=== PATIENT | female | born 1955 | race Caucasian/White ===

== ENCOUNTER 2017-05-13 09:41 | Outpatient (CLI) | payer OTHER | END 2017-05-13 09:42 | disposition home or self-care (01) | LOC: BICMAMMO 09:41 | PROVIDERS: ATTEND Family Medicine | DX: Z12.31 Encounter for screening mammogram for malignant neoplasm of breast (principal); Z80.3 Family history of malignant neoplasm of breast | CPT/HCPCS: 77063; 77067 ==

== ENCOUNTER 2017-12-24 08:30 | Outpatient (CLI) | payer OTHER ==
--- NOTE | 2017-12-24 11:14 | NM ---
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 TECHNIQUE: Examination was done as a stress only study, using 33 millicuries of 99m technetium sestamibi. FINDINGS: This shows a normal distribution of the radiopharmaceutical without signs of ischemia. WALL MOTION: There is symmetric contractility to the ventricle. CALCULATED LEFT VENTRICULAR EJECTION FRACTION: The calculated left ventricular ejection fraction is 77%. IMPRESSION: Unremarkable stress myocardial study. POS: [facility]
[2017-12-24] MEDS ORDERED: Regadenoson 0.4 MG/5 ML SYRINGE ONE (15:08)
--- NOTE | 2017-12-26 11:13 | STRESS ---
Acquisition Time: 2017-12-24 09:22:53 Total Exercise Time: 00:01:00 Test Indications: CAD Medications: Protocol: LEXISCAN Max HR: 089 BPM 56% of Pred: 157 BPM Max BP: 130/088 mmHG Max Work Load: 1.0 METS RESTING ECG: NORMAL SINUS RHYTHM SYMPTOMS: CHEST PAIN, ARM PARESTHESIA NORMAL BP RESPONSE ECTOPY: NONE ECG STRESS: NO SIGNIFICANT CHANGES INTERPRETATION: AWAIT NUCLEAR IMAGES FOR DEFINITIVE DIAGNOSIS Confirmed by JAE WEBB ([id number]), technical editor ARACELI FERREIRA ([id number]) on 12/26/2017 11:13:06 AM Referred By: MD Tyler MCKEON Confirmed By:JAE WEBB
== END 2017-12-24 08:31 | disposition home or self-care (01) ==
LOC: NM 08:30
PROVIDERS: ATTEND Internal Medicine Cardiovascular Disease
DX: I25.10 Atherosclerotic heart disease of native coronary artery without angina pectoris (principal)
CPT/HCPCS: 78452; 93017; A9500; J2785

== ENCOUNTER 2018-06-02 12:32 | Day surgery (SDC) | payer OTHER ==
[2018-05-30 12:08] VITALS: BMI 48.5
[~2018-06-02 12:32] MED LIST: Dexamethasone 20 MG/5 ML VIAL ONE; Lidocaine 1% PF 5 ML VIAL ONE; PHENYLEPHRINE-NS 100 MCG/ML 10 ML SYRINGE ONE; PROPOFOL 200 MG/20 ML VIAL ONE; Succinylcholine Chloride 20 MG/ML 10 ml SYRINGE FS ONE; ePHEDrine 50 MG/ML VIAL ONE
[2018-06-02] MEDS ORDERED: Midazolam HCl 2 mg/2 ml Vial ONE (13:20)
[2018-06-02] MEDS ORDERED: Lidocaine 2% Jelly 5 ML TUBE ONE (13:20)
[2018-06-02] MEDS ORDERED: Fentanyl 100 MCG/2 ML VIAL ONE (13:20)
[2018-06-02 13:42] LABS: Anion Gap 14 mmol/L (10-20); BUN (Urea Nitrogen) 17 mg/dL (9.8-20.1); Calc. Creatinine Clearance 147 mL/min (70-130); Calcium 9.5 mg/dL (7.8-10.44); Carbon Dioxide 25 mmol/L (23-31); Chloride 106 mmol/L (98-107); Estimated GFR-MDRD 66; Glucose 95 mg/dL (80-115); Potassium 4.9 mmol/L (3.5-5.1); Sodium 140 mmol/L (136-145)
[2018-06-02 13:45] LABS: #Basophils 0.1 thou/uL (0.0-0.2); #Eosinphils 0.1 thou/uL (0.0-0.7); #Lymphocytes 1.9 thou/uL (1.20-3.40); #Monocytes 0.4 thou/uL (0.11-0.59); #Neutrophils 2.3 thou/uL (1.40-6.50); %Basophils 1.6 % (0.0-1.0); %Eosinophils 1.9 % (0.0-10.0); %Lymphocytes 39.6 % (21.0-51.0); %Monocytes 8.3 % (0.0-10.0); %Neutrophils 48.5 % (42.0-75.0); Hemoglobin 13.5 g/dL (12.0-16.0); Mean Corpuscular HGB CONC 32.8 g/dL (32.0-36.0); Mean Corpuscular Hemoglobin 29.2 pg (27.0-31.0); Mean Corpuscular Volume 89.2 fL (78.0-98.0); Mean Platelet Volume 8.4 fL (7.4-10.4); Platelet Count 206 thou/uL (130-400); RBC Distribution Width 12.7 % (11.5-14.5); Red Blood Cell (RBC) Count 4.64 mill/uL (4.20-5.40); White Blood Cell (WBC) Count 4.7 thou/uL (4.8-10.8)
[2018-06-02] MEDS ORDERED: Betamet Acet/Betamet Na Ph 30 MG/5 ML VIAL ONE (13:51)
[2018-06-02] MEDS ORDERED: Heparin 10,000 UNITS/1 ML VIAL ONE (13:51)
[2018-06-02] MEDS ORDERED: Bupivacaine PF 0.5% 30 ML VIAL ONE (13:51)
[2018-06-02] MEDS ORDERED: Lidocaine 2% PF 5 ML VIAL ONE (13:52)
[2018-06-02] MEDS ORDERED: Bacitracin Zinc Ointment 30 gm TUBE ONE (13:52)
[2018-06-02] MEDS ORDERED: Hetastarch 6% 500 ML 0 ML ONE (13:52)
[2018-06-02 14:22] LABS: Bilirubin Negative (Negative); Blood, Urine Trace (Negative); Glucose, Urine (Dipstick) Negative (Negative); Leukocyte Negative (Negative); Nitrite Negative (Negative); Protein, Urine (Dipstick) Negative (Neg-Trace); Specific Gravity, Urine 1.025 (1.005-1.030); Urobilinogen 0.2 mg/dL (0.2-1.0)
[2018-06-02 14:23] LABS: Clarity CLEAR (Clear)
[2018-06-02 14:27] LABS: Bacteria/HPF 1+ HPF (None Seen); Hyaline Casts/LPF NONE SEEN LPF (0-3 Hyaline); RBC/HPF 0-3 HPF (0-3); Squamous Epithelial 0-3 HPF (0-3); WBC/HPF 0-3 HPF (0-3)
--- NOTE | 2018-06-02 14:41 | RAD ---
TWO VIEWS CHEST: HISTORY: Preoperative chest radiograph. FINDINGS: PA and lateral views of the chest were obtained. Sternotomy wires were seen. The lungs are well aer ated. No evidence of active intrathoracic disease seen. No evidence of effusions, pneumonia, or pne umothorax seen. There is some minimal blunting of the left costophrenic angle likely due to some lef t pleural scar. No evidence of pulmonary vascular congestion seen. IMPRESSION: Postoperative changes with no evidence of acute intrathoracic abnormality seen. POS: [facility]
[2018-06-02] MEDS ORDERED: Ketorolac Tromethamine 30 MG/ML VIAL ONE (17:11)
--- NOTE | 2018-06-03 08:00 | OP ---
DATE OF PROCEDURE: 06/02/2018 PREOPERATIVE DIAGNOSIS: Thumb neuroma/neurilemmoma with nerve compression. POSTOPERATIVE DIAGNOSES: 1. Ganglion 2.5 cm diameter emanating from the mid lateral position of the thumb interphalangeal joint radial aspect. 2. Ganglion compressing the nerve over about half of its course, half of it size onto the radial digital nerve of the thumb. PROCEDURES PERFORMED: 1. Under magnification, neuroplasty, thumb radial digital nerve. 2. Arthrotomy, interphalangeal joint, thumb. 3. Ganglion, 2.5 cm resection from, thumb. TOURNIQUET TIME: 23 minutes. ESTIMATED BLOOD LOSS: Approximately 10 mL. GENERAL: LMA technique, augmented by approximately 50 mL stump metacarpophalangeal joint level block. DESCRIPTION OF PROCEDURE: After successful anesthesia listed above, limb prepped and draped. We outlined the incision that was midlateral except for was curved volar to have a better chance of evaluating the nerve. We began 10 mm proximal to the ganglion, identified the digital nerve and artery and then performed a neuroplasty and then over a proximally 1 cm portion of the volar aspect of this mass, which clearly proved to be ganglion, the digital nerve was being compressed and pushed midline and ulnarly. We then complete neuroplasty, protected the vascular supply, and then began to separate the ganglion. The ganglion had a stalk emanating from the mid lateral aspect of the interphalangeal joint, so we lifted the ganglion from all the surrounding soft tissue including the tendon sheath of the extensor pollicis longus, found the stalk and removed it. We then left an approximately 3 mm hole in the joint after the arthrotomy. Tourniquet was released, hemostasis obtained. We closed the wound with interrupted 5-0 nylon distal to the interphalangeal joint and proximal to the interphalangeal joint using 4-0 nylon, both in interrupted simple pattern. Bulky dressing was applied along with a thumb spica splint and the patient left the operating room without evidence of anesthetic operative complication. Job ID: [id number]
--- NOTE | 2018-06-03 09:35 | EKG ---
Test Reason : PREOP Blood Pressure : / mmHG Vent. Rate : 073 BPM Atrial Rate : 073 BPM P-R Int : 152 ms QRS Dur : 074 ms QT Int : 414 ms P-R-T Axes : 033 037 049 degrees QTc Int : 456 ms Normal sinus rhythm RSR' or QR pattern in V1 suggests right ventricular conduction delay Cannot rule out Inferior infarct , age undetermined Abnormal ECG When compared with ECG of 28-FEB-2016 12:32, Nonspecific T wave abnormality has replaced inverted T waves in Anterior leads Nonspecific T wave abnormality, worse in Lateral leads QT has shortened Confirmed by DR. Gayatri GA ([id number]) on 06/03/2018 9:34:31 AM Referred By: SUMEET Confirmed By:DR. Gayatri GA
== END 2018-06-02 19:02 | disposition home or self-care (01) ==
LOC: SDC 12:32
PROVIDERS: ATTEND Orthopaedic Surgery Hand Surgery
PROC: 0LB70ZZ Excision of Right Hand Tendon, Open Approach (ICD-10-PCS; principal; 2018-06-02)
DX: D49.2 Neoplasm of unspecified behavior of bone, soft tissue, and skin (principal); I25.10 Atherosclerotic heart disease of native coronary artery without angina pectoris; Z87.891 Personal history of nicotine dependence; Z79.82 Long term (current) use of aspirin; Z79.899 Other long term (current) drug therapy; Z95.1 Presence of aortocoronary bypass graft
CPT/HCPCS: 71046; 80048; 81001; 85025; 88305; 93005; 93010; J0702; J1100; J1644; J1885; J2001; J2250; J2704; J3010; J3490; S0020

== ENCOUNTER 2018-11-04 12:14 | Outpatient (CLI) | payer OTHER ==
--- NOTE | 2018-11-04 14:24 | CT ---
CT pulmonary lung scan without IV contrast INDICATION: Lung cancer screening protocol; smoker for 30+ years; quit 3 years ago; history of heart attack and partial left pneumonectomy COMPARISON: CT PE examination dated September 13, 2005 FINDINGS: LUNGS: Nodules\mass: There is a stable noncalcified pulmonary nodule involving the left lung base measuring 5 mm; this has been stable since 2005. No additional suspicious pulmonary nodule is evident. There is a calcified granuloma in the right upper lobe. There is postsurgical change of a partial par tial left pneumonectomy. There is postsurgical change of a prior CABG. Emphysema: There is [id number] scattered emphysema Additional findings: None. Mediastinum: No lymphadenopathy. Upper abdomen: No abnormality. Osseous structures: There is scattered degenerative and osteoarthritic change present.. IMPRESSION: Lung-RADS Category 2: Benign- Continue annual screening with LDCT in 12 months Category S: None. Category C: Not applicable.
== END 2018-11-04 12:15 | disposition home or self-care (01) ==
LOC: CT 12:14
PROVIDERS: ATTEND Physician Assistant
DX: Z87.891 Personal history of nicotine dependence (principal)
CPT/HCPCS: G0297

== ENCOUNTER 2018-11-05 12:26 | Outpatient (CLI) | payer OTHER ==
--- NOTE | 2018-11-05 14:06 | MMO ---
Bilateral MAMMO Bilat Screen [facility]. CLINICAL HISTORY: Patient is 63 years old and is seen for screening. The patient has the following family history of breast cancer: mother, at age 63. The patient has no personal history of cancer. VIEWS: The views performed were: bilateral craniocaudal with tomosynthesis; bilateral mediolateral oblique; and bilateral mediolateral oblique with tomosynthesis. FILMS COMPARED: The present examination has been compared to prior imaging studies performed at MAMMOGRAM FINDINGS: There are scattered fibroglandular densities. Finding 1: There are stable benign appearing calcifications seen in both breasts. Finding 2: There are stable benign appearing densities seen in both breasts. There are no suspicious masses, suspicious calcifications, or new areas of architectural distortion. IMPRESSION: THERE IS NO MAMMOGRAPHIC EVIDENCE OF MALIGNANCY. A ROUTINE FOLLOW-UP MAMMOGRAM IN 1 YEAR IS RECOMMENDED. THE RESULTS OF THIS EXAM WERE SENT TO THE PATIENT. ACR BI-RADS Category 2 - Benign finding MAMMOGRAPHY NOTE: 1. A negative mammogram report should not delay a biopsy if a dominant of clinically suspicious mass is present. 2. Approximately 10% to 15% of breast cancers are not detected by mammography. 3. Adenosis and dense breasts may obscure an underlying neoplasm. Reported by: SAMANTHA SCHAFFER MD Electonically Signed: [id number]
--- NOTE | 2018-11-05 16:03 | ULT ---
THYROID ULTRASOUND: 11/05/18 HISTORY: Evaluate thyroid nodules. COMPARISON: 10/23/16. TECHNIQUE: Multiplanar dupont scale sonographic imaging of the thyroid gland obtained. FINDINGS: Thyroid isthmus measures 3 mm in AP dimension. Right lobe measures 1.5 x 5.6 x 1.2 cm and left lobe m easures 1.6 x 4.9 x 1.2 cm. There is no thyroid nodule involving the right lobe or the isthmus. There is a 5 x 3 x 4 mm hypoechoic nodule within the medial aspect of the left lobe superiorly. There is also a 2 x 2 x 2 mm cystic nodule in the mid portion of the left lobe of the thyroid gland. Thes e tiny thyroid nodules are of doubtful clinical significance. IMPRESSION: Grossly unremarkable thyroid ultrasound as detailed above. No significant interval change when compar ed to the prior study. POS: [facility]
== END 2018-11-05 12:27 | disposition home or self-care (01) ==
LOC: BICULT 12:26
PROVIDERS: ATTEND Physician Assistant
DX: Z12.31 Encounter for screening mammogram for malignant neoplasm of breast (principal); E04.2 Nontoxic multinodular goiter; Z80.3 Family history of malignant neoplasm of breast
CPT/HCPCS: 76536; 77063; 77067

== ENCOUNTER 2018-11-26 11:31 | Emergency (ER) | payer OTHER ==
[2018-11-26] MEDS ORDERED: Lidocaine 1% (PF) 30 ML VIAL ONE (12:09)
[2018-11-26] MEDS ORDERED: Ondansetron ODT 4 MG TAB ONE (12:47)
[2018-11-26] MEDS ORDERED: Triple Antibiotic Oint 1 GM Packet ONE (12:51)
== END 2018-11-26 13:10 | disposition home or self-care (01) ==
LOC: ERS 11:31
DX: S61.210A Laceration without foreign body of right index finger without damage to nail, initial encounter (principal); W26.8XXA Contact with other sharp object(s), not elsewhere classified, initial encounter
CPT/HCPCS: 12001; J2001; Q0162

== ENCOUNTER 2019-02-23 13:49 | Outpatient (CLI) | payer OTHER ==
--- NOTE | 2019-02-23 14:15 | RAD ---
Right calcaneus 2 views HISTORY: Right heel pain. FINDINGS: Small enthesophytes at the Achilles insertion and plantar origin. Moderate osteoarthritic c hanges of the hindfoot. No acute fracture or dislocation. Boehler's angle is maintained. IMPRESSION: Osteoarthritis of the hindfoot. Small heel spurs. No acute osseous abnormalities are demonstrated.
== END 2019-02-23 13:50 | disposition home or self-care (01) ==
LOC: BICRAD 13:49
PROVIDERS: ATTEND Family Medicine
DX: M79.671 Pain in right foot (principal); M19.071 Primary osteoarthritis, right ankle and foot; M77.31 Calcaneal spur, right foot

== ENCOUNTER 2019-09-01 09:00 | Outpatient (CLI) | payer OTHER | END 2019-09-01 09:01 | disposition home or self-care (01) | LOC: DTY/OP 09:00 | PROVIDERS: ATTEND Surgery | DX: E66.01 Morbid (severe) obesity due to excess calories (principal) | CPT/HCPCS: 97802 ==

== ENCOUNTER 2019-12-10 12:30 | Outpatient (CLI) | payer MEDICARE ==
--- NOTE | 2019-12-10 13:21 | MMO ---
Bilateral MAMMO Bilat Screen [facility]. CLINICAL HISTORY: Patient is 64 years old and is seen for screening. The patient has the following family history of breast cancer: mother, at age 63. The patient has no personal history of cancer. VIEWS: The views performed were: bilateral craniocaudal with tomosynthesis and bilateral mediolateral oblique with tomosynthesis. FILMS COMPARED: The present examination has been compared to prior imaging studies performed at 05/13/2017 and 11/05/2018. This study has been interpreted with the assistance of computer-aided detection. MAMMOGRAM FINDINGS: There are scattered fibroglandular densities. Benign calcifications are noted bilaterally. There are no suspicious masses, suspicious calcifications, or new areas of architectural distortion. IMPRESSION: THERE IS NO MAMMOGRAPHIC EVIDENCE OF MALIGNANCY. A ROUTINE FOLLOW-UP MAMMOGRAM IN 1 YEAR IS RECOMMENDED. THE RESULTS OF THIS EXAM WERE SENT TO THE PATIENT. ACR BI-RADS Category 2 - Benign finding MAMMOGRAPHY NOTE: 1. A negative mammogram report should not delay a biopsy if a dominant of clinically suspicious mass is present. 2. Approximately 10% to 15% of breast cancers are not detected by mammography. 3. Adenosis and dense breasts may obscure an underlying neoplasm. Reported by: KAITLIN MANDUJANO MD Electonically Signed: [id number]
== END 2019-12-10 12:31 | disposition home or self-care (01) ==
LOC: BICMAMMO 12:30
PROVIDERS: ATTEND Physician Assistant
DX: Z12.31 Encounter for screening mammogram for malignant neoplasm of breast (principal); Z80.3 Family history of malignant neoplasm of breast
CPT/HCPCS: 77063; 77067

== ENCOUNTER 2019-12-18 14:33 | Outpatient (CLI) | payer MEDICARE ==
--- NOTE | 2019-12-18 15:10 | CT ---
EXAM: CT chest without contrast per low-dose cancer screening protocol HISTORY: History of smoking and nicotine dependence COMPARISON: 11/04/2018 TECHNIQUE: Multiple contiguous axial images were obtained in a CT of the chest without contrast per l ow-dose cancer screening protocol. Sagittal and coronal reformats were performed. FINDINGS: Pulmonary nodules: A calcified granuloma seen in the right upper lobe. There is a stable triangular-s haped area measuring 5 mm in size of nodularity in the left lung base just above the left hemidiaphragm. No suspicious pulmonary nodules are seen. No focal infiltrates are seen. Pleural space: No pneumothorax or pleural effusion are seen. Heart: The heart is normal in size. Mediastinum: No hilar or mediastinal lymphadenopathy appreciated on this limited noncontrast examinat ion. Bones: Degenerative changes in the spine. Visualized subdiaphragmatic structures: Postsurgical changes are seen in the stomach.. IMPRESSION: Lung RADS category 2-benign findings.
== END 2019-12-18 14:34 | disposition home or self-care (01) ==
LOC: BICCT 14:33
PROVIDERS: ATTEND Physician Assistant
DX: Z12.2 Encounter for screening for malignant neoplasm of respiratory organs (principal); Z87.891 Personal history of nicotine dependence
CPT/HCPCS: G0297

== ENCOUNTER 2019-12-31 08:50 | Outpatient (CLI) | payer MEDICARE ==
--- NOTE | 2019-12-31 10:00 | BD ---
BONE DENSITOMETRY: Date: 12/31/2019 HISTORY: Postmenopausal screening. FINDINGS: Lumbar Spine: BMD (g/cm2) L1 1.062 T-Score: 0.7 L2 1.206 T-Score: 1.6 L3 1.223 T-Score: 1.3 L4 1.110 T-Score: 0.4 Total 1.153 T-Score: 1.0 Left Femoral Neck: 0.670 T-Score: -1.6 Total Femur: 1.181 T-Score: 2.0 IMPRESSION: 1. Bone mineral density of the femoral neck indicate osteopenia. 2. Bone mineral density of the lumbar spine within normal range. 10 YEAR FRACTURE RISK: Major osteoporotic fracture: 8.0% Hip fracture: 0.9% POS: [facility]
== END 2019-12-31 08:51 | disposition home or self-care (01) ==
LOC: BICMAMMO 08:50
PROVIDERS: ATTEND Physician Assistant
DX: Z13.820 Encounter for screening for osteoporosis (principal); Z78.0 Asymptomatic menopausal state; M85.852 Other specified disorders of bone density and structure, left thigh
CPT/HCPCS: 77080

== ENCOUNTER 2020-01-20 11:11 | Outpatient (CLI) | payer MEDICARE ==
--- NOTE | 2020-01-20 13:52 | RAD ---
LUMBAR SPINE 3 VIEWS: Date: 01/20/2020 HISTORY: Lumbago with sciatica. FINDINGS: Lumbar vertebra maintain height and alignment. The disc spaces are preserved. Mild degenerative spurr ing. Moderate facet hypertrophy. IMPRESSION: Mild to moderate degenerative change. POS: [facility]
== END 2020-01-20 11:12 | disposition home or self-care (01) ==
LOC: BICRAD 11:11
PROVIDERS: ATTEND Physician Assistant
DX: M54.42 Lumbago with sciatica, left side (principal); M47.816 Spondylosis without myelopathy or radiculopathy, lumbar region
CPT/HCPCS: 72100

== ENCOUNTER 2021-01-20 12:31 | Outpatient (CLI) | payer MEDICARE | END 2021-01-20 12:32 | disposition home or self-care (01) | LOC: BICMAMMO 12:31 | PROVIDERS: ATTEND Physician Assistant | DX: Z12.31 Encounter for screening mammogram for malignant neoplasm of breast (principal); Z80.3 Family history of malignant neoplasm of breast | CPT/HCPCS: 77063; 77067 ==

== ENCOUNTER 2021-01-20 14:37 | Outpatient (CLI) | payer MEDICARE | END 2021-01-20 14:38 | disposition home or self-care (01) | LOC: BICCT 14:37 | PROVIDERS: ATTEND Physician Assistant | DX: Z12.2 Encounter for screening for malignant neoplasm of respiratory organs (principal); Z87.891 Personal history of nicotine dependence | CPT/HCPCS: 71271 ==